=== PATIENT | male | born 1990 | race Caucasian/White ===

== ENCOUNTER → 2016-06-24 | Outpatient (CLI) | payer SELFPAY ==
[~2016-06-24] MED LIST: CIPR500S2 PO; CPR500T PO; DEXL60CA PO; NITR-65 PO; PANT40TA2 PO; POLY119P5 PO; SUCR1TAB36 PO
--- NOTE | 2016-06-24 15:52 | Diagnostic Imaging Report ---
INDICATION: Testicular swelling. FINDINGS: The right testicle measures 4.4 x 2.0 x 3.1 cm. Left testicle measures 4.5 x 2.4 x 2.8 cm. Both testicles are homogeneous in appearance with normal blood flow. There are small bilateral hydroceles. There is enlargement of left epididymis which does show some hypervascularity. There is moderate varicocele noted on the left. IMPRESSION: 1. Testicles are symmetrical and appear normal. 2. Moderate varicocele on the left. 3. Probable mild epididymitis on the left. 4. Small bilateral hydroceles. Dictated by: Dictated on workstation # [id number]
== END ==
LOC: RAD 15:04
PROVIDERS: ATTEND Nurse Practitioner Family
DX: I86.1 Scrotal varices (principal); N43.3 Hydrocele, unspecified
CPT/HCPCS: 76870